=== PATIENT | male | born 1950 | race Caucasian/White ===

== ENCOUNTER 2024-03-11 14:23 | Emergency (ER) | payer MEDICARE ==
[~2024-03-11] VITALS: Ht 177.8 cm; Wt 120.0 kg
[2024-03-11 14:30] VITALS: BP 183/90
[2024-03-11] MEDS ORDERED: ONDANSETRON 4 MG/TAB ODT SL ONE (14:35)
[2024-03-11] MEDS ORDERED: ORPHENADRINE CITRATE 30 MG/ML AMP IM ONE (14:35)
[2024-03-11] MEDS ORDERED: KETOROLAC TROMETHAMINE 30 MG/ML SDV IM ONE (14:35)
[2024-03-11] MEDS ORDERED: oxyCODONE 5MG/ ACETAMINOPHEN 325MG TAB PO ONE (14:35)
[2024-03-11 14:38] VITALS: BP 165/90
[2024-03-11 15:54] VITALS: BP 137/82
[2024-03-11 16:01] VITALS: BP 133/79
[2024-03-11] MEDS ORDERED: NAPROXEN500 MG PO ×2 (16:15→16:20)
[2024-03-11] MEDS ORDERED: METHOCARBAMOL500 MG PO ×2 (16:15→16:20)
[2024-03-11] MEDS ORDERED: PREDNISONE20 MG PO ×2 (16:15→16:20)
[2024-03-11] MEDS ORDERED: LORTAB 5/3255 MG PO ×2 (16:15→16:20)
[2024-03-11 16:16] VITALS: BP 148/75
[2024-03-11 16:31] VITALS: BP 151/70
== END 2024-03-11 16:46 | disposition home or self-care (01) ==
LOC: ED 14:23
DX: S39.012A Strain of muscle, fascia and tendon of lower back, initial encounter (principal); W54.1XXA Struck by dog, initial encounter; Y92.007 Garden or yard of unspecified non-institutional (private) residence as the place of occurrence of the external cause

== ENCOUNTER 2024-03-25 10:13 | Inpatient (IN) | payer MEDICARE ==
[~2024-03-25] VITALS: Ht 182.9 cm; Wt 120.0 kg
[2024-03-25] VITALS (31 sets, daily range): BP systolic 128–173; BP diastolic 74–106
[~2024-03-25 10:13] MED LIST: LORTAB 5/3255 MG PO; METHOCARBAMOL500 MG PO; NAPROXEN500 MG PO; PREDNISONE20 MG PO
[2024-03-25] MEDS ORDERED: diazePAM 10 MG/2 ML VIAL IM ONE (10:50)
[2024-03-25] MEDS ORDERED: KETOROLAC TROMETHAMINE 30 MG/ML SDV IM ONE (10:50)
[2024-03-25] MEDS ORDERED: DEXAMETHASONE SOD. PHOSPHATE 10 MG/ML VIAL IM ONE (10:55)
[2024-03-25] MEDS ORDERED: diazePAM 10 MG/2 ML VIAL IV ONE (12:15)
[2024-03-25] MEDS ORDERED: HYDROmorphone HCL 2 MG/AMP IV ONE (12:15)
[2024-03-25] MEDS ORDERED: METHOTREXATE S2.5 MG PO (12:33)
[2024-03-25] MEDS ORDERED: FOLIC ACID1 MG PO (12:33)
[2024-03-25] MEDS ORDERED: AVONEX30 MCG/0.5 SC (12:34)
[2024-03-25] MEDS ORDERED: VITAMIN D-32000 UNI1 PO (12:48)
[2024-03-25] MEDS ORDERED: TRAZODONE100 MG PO (12:48)
[2024-03-25] MEDS ORDERED: OS-CAL 500500 M1 PO (12:49)
[2024-03-25 13:07] LABS: BASO% 0.3 % (0-3); EOS% 0.4 % (0-8); HEMATOCRIT 47.1 % (39.0-50.0); IMMATURE GRANULOCYTES 0.3 % (0.0-5.0); LYMPH% 5.6 % (15-41); MEAN CELL VOLUME 102.2 fL CALC (80.0-100.0); MEAN CORPUSCULAR HGB 34.7 pG CALC (26.0-32.0); MONO% 5.9 % (2-13); NEUT# 12.54 thou/uL (1.82-7.42); NEUT% 87.5 % (42-76); RED BLOOD COUNT 4.61 mill/uL (4.70-6.10); RED CELL DISTRI WIDTH 14.3 % (11.5-15.5)
[2024-03-25 13:17] LABS: ALBUMIN 4.1 g/dL (3.2-5.0); BILIRUBIN, TOTAL 1.1 mg/dL (0.2-1.3); CREATININE 0.8 mg/dL (0.7-1.3); POTASSIUM 4.3 mmol/l (3.5-5.1); TOTAL PROTEIN 7.2 g/dL (6.3-8.2)
[2024-03-25 13:37] LABS: URINE BLOOD DIPSTICK Negative (NEGATIVE); URINE GLUCOSE - DIPSTICK Negative (NEGATIVE); URINE KETONE 40 mg/dL (NEGATIVE); URINE LEUK ESTERASE Negative (NEGATIVE); URINE NITRITE - DIPSTICK Negative (Negative); URINE PROTEIN - DIPSTICK 100 mg/dL (NEG-TRACE); URINE SPECIFIC GRAVITY 1.025; URINE UROBILINOGEN - DIPSTICK 0.2 E.U./dL (0.2)
[2024-03-25 13:38] LABS: URINE COLOR Yellow
[2024-03-25 13:51] LABS: URINE WBC 0-2 WBC/hpf (0-5)
[2024-03-25 13:52] LABS: URINE COARSE GRANULAR CAST FEW lpf
[2024-03-25] MEDS ORDERED: SODIUM CHLORIDE 0.9% 1,000 ML IV PRN (16:10)
[2024-03-25] MEDS ORDERED: MAGNESIUM HYDROXIDE 30 ML UDC PO PRN (16:10)
[2024-03-25] MEDS ORDERED: ACETAMINOPHEN 325 MG/TAB PO PRN (16:10)
[2024-03-25] MEDS ORDERED: HYDROcodone 7.5 MG/Acetaminophen 325 MG/COMBO PO PRN (16:35)
[2024-03-25] MEDS ORDERED: BACLOFEN 10 MG/TAB PO PRN (16:40)
[2024-03-25] MEDS ORDERED: methylPREDNISolone Sod Succ 40 MG/ML SDV IV SCH (17:00)
[2024-03-25] MEDS ORDERED: ENOXAPARIN SODIUM 40 MG/0.4 ML SYR SC SCH (21:00)
[2024-03-26 04:46] VITALS: BP 157/89
[2024-03-26 05:27] VITALS: BP 157/89
[2024-03-26 07:00] VITALS: BP 155/85
[2024-03-26] MEDS ORDERED: hydrALAZINE HCL 20 MG/ML VIAL(1 ML) IV PRN (09:30)
[2024-03-26] MEDS ORDERED: amLODIPine BESYLATE 5 MG/TAB PO SCH (10:00)
[2024-03-26] MEDS ORDERED: MORPHINE SULFATE 4 MG/ML VIAL IV PRN (10:10)
[2024-03-26] MEDS ORDERED: AZITHROMYCIN 500 MG in SODIUM CHLORIDE 0.9% 250 ML IV SCH (10:30)
[2024-03-26 15:32] VITALS: BP 161/93
[2024-03-26 18:29] VITALS: BP 155/84
[2024-03-26 19:10] VITALS: BP 155/84
[2024-03-26] MEDS ORDERED: traZODone HCL 50 MG/TAB PO SCH ×2 (21:00)
[2024-03-27 04:15] VITALS: BP 107/63
[2024-03-27 04:44] VITALS: BP 107/63
[2024-03-27 05:37] LABS: HEMATOCRIT 42.8 % (39.0-50.0); HEMOGLOBIN 14.9 g/dl (14.0-18.0); MEAN CELL VOLUME 101.9 fL CALC (80.0-100.0); MEAN CORPUSCULAR HGB 35.5 pG CALC (26.0-32.0); MEAN CORPUSCULAR HGB CONC 34.8 g/dL CAL (32.0-36.0); RED BLOOD COUNT 4.2 mill/uL (4.70-6.10); RED CELL DISTRI WIDTH 14.1 % (11.5-15.5)
[2024-03-27 05:53] LABS: ALBUMIN 3.4 g/dL (3.2-5.0); BILIRUBIN, TOTAL 0.7 mg/dL (0.2-1.3); CREATININE 0.7 mg/dL (0.7-1.3)
[2024-03-27 07:00] VITALS: BP 110/50
[2024-03-27] MEDS ORDERED: INFLUENZA VIRUS VACCINE FLUZONE HD 2024/25 0.5 ML INJ IM SCH (09:00)
[2024-03-27] MEDS ORDERED: PNEUMOCOCCAL 20-VALENT CONJUGA 0.5 ML/DOSE INJ IM SCH (09:00)
[2024-03-27 14:56] VITALS: BP 134/83
[2024-03-27 19:02] VITALS: BP 156/85
[2024-03-28 04:44] VITALS: BP 125/53
[2024-03-28 05:16] LABS: HEMATOCRIT 39.3 % (39.0-50.0); HEMOGLOBIN 13.7 g/dl (14.0-18.0); MEAN CORPUSCULAR HGB 35.2 pG CALC (26.0-32.0); MEAN CORPUSCULAR HGB CONC 34.9 g/dL CAL (32.0-36.0); RED BLOOD COUNT 3.89 mill/uL (4.70-6.10); RED CELL DISTRI WIDTH 14.2 % (11.5-15.5)
[2024-03-28 05:36] LABS: ALBUMIN 3.3 g/dL (3.2-5.0); BILIRUBIN, TOTAL 0.8 mg/dL (0.2-1.3); CREATININE 0.7 mg/dL (0.7-1.3); POTASSIUM 3.9 mmol/l (3.5-5.1); TOTAL PROTEIN 5.7 g/dL (6.3-8.2)
[2024-03-28 07:07] VITALS: BP 147/81
[2024-03-28] MEDS ORDERED: LIDOCAINE 4 % PATCH TD SCH (09:00)
[2024-03-28] MEDS ORDERED: KETOROLAC TROMETHAMINE 30 MG/ML SDV IV PRN (11:15)
[2024-03-28] MEDS ORDERED: METHOCARBAMOL 500 MG/TAB PO SCH (13:00)
[2024-03-28 16:01] VITALS: BP 143/73
[2024-03-28 18:30] VITALS: BP 135/69
[2024-03-28 18:40] VITALS: BP 135/69
[2024-03-29 04:00] VITALS: BP 145/78
[2024-03-29 05:26] LABS: HEMATOCRIT 40.9 % (39.0-50.0); MEAN CELL VOLUME 102.8 fL CALC (80.0-100.0); MEAN CORPUSCULAR HGB 35.2 pG CALC (26.0-32.0); MEAN CORPUSCULAR HGB CONC 34.2 g/dL CAL (32.0-36.0); MONO% 7.9 % (2-13); NEUT# 13.15 thou/uL (1.82-7.42); NEUT% 84.1 % (42-76); RED BLOOD COUNT 3.98 mill/uL (4.70-6.10)
[2024-03-29 05:38] LABS: ALBUMIN 3.4 g/dL (3.2-5.0); BILIRUBIN, TOTAL 0.8 mg/dL (0.2-1.3); CREATININE 0.7 mg/dL (0.7-1.3); MAGNESIUM 2.4 mg/dL (1.6-2.3); POTASSIUM 4.2 mmol/l (3.5-5.1); TOTAL PROTEIN 5.9 g/dL (6.3-8.2)
[2024-03-29 06:32] VITALS: BP 149/75
[2024-03-29 06:56] VITALS: BP 149/75
[2024-03-29] MEDS ORDERED: LIDOCAINE 4 % PATCH TD SCH (11:00)
[2024-03-29 16:06] VITALS: BP 130/69
[2024-03-29 17:24] VITALS: BP 130/69
[2024-03-29 19:28] VITALS: BP 135/61
[2024-03-30] VITALS (7 sets, daily range): BP systolic 124–158; BP diastolic 67–72
[2024-03-30 05:46] LABS: ALBUMIN 3.6 g/dL (3.2-5.0); BILIRUBIN, TOTAL 0.7 mg/dL (0.2-1.3); CREATININE 0.7 mg/dL (0.7-1.3); MAGNESIUM 2.6 mg/dL (1.6-2.3); POTASSIUM 4.4 mmol/l (3.5-5.1); TOTAL PROTEIN 6.1 g/dL (6.3-8.2)
[2024-03-30 05:53] LABS: HEMATOCRIT 41.1 % (39.0-50.0); HEMOGLOBIN 14.1 g/dl (14.0-18.0); IMMATURE GRANULOCYTES 1.3 % (0.0-5.0); MEAN CORPUSCULAR HGB 35.3 pG CALC (26.0-32.0); MEAN CORPUSCULAR HGB CONC 34.3 g/dL CAL (32.0-36.0); MONO% 8.8 % (2-13); NEUT# 13.27 thou/uL (1.82-7.42); NEUT% 81.9 % (42-76); RED BLOOD COUNT 3.99 mill/uL (4.70-6.10); RED CELL DISTRI WIDTH 14.4 % (11.5-15.5)
[2024-03-30] MEDS ORDERED: Cefdinir 300 MG/CAP PO SCH (09:00)
[2024-03-31 03:48] VITALS: BP 143/74
[2024-03-31 05:02] VITALS: BP 143/74
[2024-03-31 05:43] LABS: EOS% 0.5 % (0-8); HEMATOCRIT 37.2 % (39.0-50.0); HEMOGLOBIN 12.9 g/dl (14.0-18.0); IMMATURE GRANULOCYTES 2.9 % (0.0-5.0); LYMPH% 16.2 % (15-41); MEAN CELL VOLUME 101.4 fL CALC (80.0-100.0); MEAN CORPUSCULAR HGB 35.1 pG CALC (26.0-32.0); MEAN CORPUSCULAR HGB CONC 34.7 g/dL CAL (32.0-36.0); MONO% 10.7 % (2-13); NEUT# 9.61 thou/uL (1.82-7.42); NEUT% 69.7 % (42-76); RED BLOOD COUNT 3.67 mill/uL (4.70-6.10)
[2024-03-31 06:05] LABS: ALBUMIN 3.1 g/dL (3.2-5.0); BILIRUBIN, TOTAL 0.6 mg/dL (0.2-1.3); CREATININE 0.8 mg/dL (0.7-1.3); MAGNESIUM 2.3 mg/dL (1.6-2.3); TOTAL PROTEIN 5.4 g/dL (6.3-8.2)
[2024-03-31 07:00] VITALS: BP 133/68
[2024-03-31] MEDS ORDERED: METHOCARBAMOL 500 MG/TAB PO SCH (08:00)
[2024-03-31 08:52] VITALS: BP 123/69
[2024-03-31] MEDS ORDERED: predniSONE 20 MG/TAB PO SCH (09:00)
[2024-03-31 15:15] VITALS: BP 122/50
[2024-03-31 18:24] VITALS: BP 105/59
[2024-04-01 03:19] VITALS: BP 133/61
[2024-04-01 05:50] LABS: EOS% 1.2 % (0-8); HEMATOCRIT 37.1 % (39.0-50.0); HEMOGLOBIN 12.9 g/dl (14.0-18.0); IMMATURE GRANULOCYTES 4.3 % (0.0-5.0); LYMPH% 15.6 % (15-41); MEAN CELL VOLUME 101.6 fL CALC (80.0-100.0); MEAN CORPUSCULAR HGB 35.3 pG CALC (26.0-32.0); MEAN CORPUSCULAR HGB CONC 34.8 g/dL CAL (32.0-36.0); MONO% 10.3 % (2-13); NEUT# 9.17 thou/uL (1.82-7.42); NEUT% 68.6 % (42-76); RED BLOOD COUNT 3.65 mill/uL (4.70-6.10); RED CELL DISTRI WIDTH 14.2 % (11.5-15.5)
[2024-04-01 05:59] LABS: BILIRUBIN, TOTAL 0.6 mg/dL (0.2-1.3); CREATININE 0.7 mg/dL (0.7-1.3); MAGNESIUM 2.3 mg/dL (1.6-2.3); POTASSIUM 4.1 mmol/l (3.5-5.1); TOTAL PROTEIN 5.4 g/dL (6.3-8.2)
[2024-04-01 07:23] VITALS: BP 135/66
[2024-04-01 15:07] VITALS: BP 125/68
[2024-04-01 18:25] VITALS: BP 117/65
[2024-04-02 04:49] VITALS: BP 115/40
[2024-04-02 05:27] LABS: EOS% 0.9 % (0-8); HEMATOCRIT 36.8 % (39.0-50.0); HEMOGLOBIN 12.6 g/dl (14.0-18.0); IMMATURE GRANULOCYTES 4.7 % (0.0-5.0); LYMPH% 14.5 % (15-41); MEAN CELL VOLUME 101.4 fL CALC (80.0-100.0); MEAN CORPUSCULAR HGB 34.7 pG CALC (26.0-32.0); MEAN CORPUSCULAR HGB CONC 34.2 g/dL CAL (32.0-36.0); NEUT# 8.26 thou/uL (1.82-7.42); NEUT% 69.9 % (42-76); RED BLOOD COUNT 3.63 mill/uL (4.70-6.10); RED CELL DISTRI WIDTH 14.3 % (11.5-15.5)
[2024-04-02 05:46] LABS: BILIRUBIN, TOTAL 0.7 mg/dL (0.2-1.3); CREATININE 0.7 mg/dL (0.7-1.3); TOTAL PROTEIN 5.4 g/dL (6.3-8.2)
[2024-04-02 07:30] VITALS: BP 136/54
[2024-04-02 15:49] VITALS: BP 122/63
[2024-04-02 18:56] VITALS: BP 126/68
[2024-04-02] MEDS ORDERED: SENNOSIDES-Docusate Sodium 1 COMBO TAB PO SCH (21:00)
[2024-04-03 04:37] VITALS: BP 128/67
[2024-04-03 05:00] LABS: BASO% 0.1 % (0-3); HEMATOCRIT 38.2 % (39.0-50.0); HEMOGLOBIN 12.9 g/dl (14.0-18.0); IMMATURE GRANULOCYTES 4.2 % (0.0-5.0); LYMPH% 16.3 % (15-41); MEAN CELL VOLUME 103.8 fL CALC (80.0-100.0); MEAN CORPUSCULAR HGB 35.1 pG CALC (26.0-32.0); MEAN CORPUSCULAR HGB CONC 33.8 g/dL CAL (32.0-36.0); MONO% 9.2 % (2-13); NEUT# 7.66 thou/uL (1.82-7.42); NEUT% 69.2 % (42-76); RED BLOOD COUNT 3.68 mill/uL (4.70-6.10); RED CELL DISTRI WIDTH 14.3 % (11.5-15.5)
[2024-04-03 05:13] LABS: ALBUMIN 3.1 g/dL (3.2-5.0); BILIRUBIN, TOTAL 0.8 mg/dL (0.2-1.3); CREATININE 0.7 mg/dL (0.7-1.3); MAGNESIUM 2.2 mg/dL (1.6-2.3); POTASSIUM 4.5 mmol/l (3.5-5.1); TOTAL PROTEIN 5.5 g/dL (6.3-8.2)
[2024-04-03 07:21] VITALS: BP 124/69
[2024-04-03 16:26] VITALS: BP 130/69
[2024-04-03 18:41] VITALS: BP 117/69
[2024-04-04 05:03] LABS: BASO% 0.1 % (0-3); EOS% 0.9 % (0-8); HEMATOCRIT 39.1 % (39.0-50.0); HEMOGLOBIN 13.1 g/dl (14.0-18.0); IMMATURE GRANULOCYTES 5.1 % (0.0-5.0); LYMPH% 11.1 % (15-41); MEAN CELL VOLUME 102.4 fL CALC (80.0-100.0); MEAN CORPUSCULAR HGB 34.3 pG CALC (26.0-32.0); MEAN CORPUSCULAR HGB CONC 33.5 g/dL CAL (32.0-36.0); MONO% 8.9 % (2-13); NEUT# 8.35 thou/uL (1.82-7.42); NEUT% 73.9 % (42-76); RED BLOOD COUNT 3.82 mill/uL (4.70-6.10); RED CELL DISTRI WIDTH 14.2 % (11.5-15.5)
[2024-04-04 05:15] LABS: ALBUMIN 3.1 g/dL (3.2-5.0); BILIRUBIN, TOTAL 0.7 mg/dL (0.2-1.3); CREATININE 0.9 mg/dL (0.7-1.3); MAGNESIUM 2.2 mg/dL (1.6-2.3); TOTAL PROTEIN 5.6 g/dL (6.3-8.2)
[2024-04-04 07:00] VITALS: BP 115/68
[2024-04-04 15:06] VITALS: BP 111/69
[2024-04-04] MEDS ORDERED: BISACODYL 10 MG SUPP RE PRN (16:10)
[2024-04-04 19:21] VITALS: BP 112/75
[2024-04-04] MEDS ORDERED: MAGNESIUM HYDROXIDE 30 ML UDC PO PRN (20:45)
[2024-04-04] MEDS ORDERED: LACTULOSE 20 GM/30 ML UDC PO PRN (20:50)
[2024-04-05 04:19] VITALS: BP 144/85
[2024-04-05 04:19] LABS: ALBUMIN 3.1 g/dL (3.2-5.0); BILIRUBIN, TOTAL 0.6 mg/dL (0.2-1.3); CREATININE 0.7 mg/dL (0.7-1.3); MAGNESIUM 2.4 mg/dL (1.6-2.3); TOTAL PROTEIN 5.7 g/dL (6.3-8.2)
[2024-04-05 04:38] LABS: BASO% 0.2 % (0-3); EOS% 0.5 % (0-8); HEMATOCRIT 37.7 % (39.0-50.0); IMMATURE GRANULOCYTES 3.6 % (0.0-5.0); MEAN CELL VOLUME 101.1 fL CALC (80.0-100.0); MEAN CORPUSCULAR HGB 34.9 pG CALC (26.0-32.0); MEAN CORPUSCULAR HGB CONC 34.5 g/dL CAL (32.0-36.0); NEUT# 7.2 thou/uL (1.82-7.42); NEUT% 65.7 % (42-76); RED BLOOD COUNT 3.73 mill/uL (4.70-6.10); RED CELL DISTRI WIDTH 14.2 % (11.5-15.5)
[2024-04-05 07:09] VITALS: BP 141/82
[2024-04-05 15:36] VITALS: BP 124/77
[2024-04-05 19:18] VITALS: BP 138/75
[2024-04-06 03:52] VITALS: BP 125/64
[2024-04-06 05:22] LABS: ALBUMIN 3.2 g/dL (3.2-5.0); BILIRUBIN, TOTAL 0.6 mg/dL (0.2-1.3); CREATININE 0.7 mg/dL (0.7-1.3); POTASSIUM 4.1 mmol/l (3.5-5.1); TOTAL PROTEIN 5.8 g/dL (6.3-8.2)
[2024-04-06 07:16] VITALS: BP 132/67
[2024-04-06 15:21] VITALS: BP 117/71
[2024-04-06 18:22] VITALS: BP 126/80
[2024-04-06 18:27] VITALS: BP 139/64
[2024-04-06 18:32] VITALS: BP 120/80
[2024-04-07 03:27] VITALS: BP 140/81
[2024-04-07 04:52] VITALS: BP 140/81
[2024-04-07 07:42] VITALS: BP 118/75
[2024-04-07 08:50] VITALS: BP 118/75
[2024-04-07 15:51] VITALS: BP 131/77
[2024-04-07 19:30] VITALS: BP 131/77
[2024-04-08 05:35] LABS: BASO% 0.4 % (0-3); EOS% 0.6 % (0-8); HEMATOCRIT 37.4 % (39.0-50.0); HEMOGLOBIN 12.8 g/dl (14.0-18.0); IMMATURE GRANULOCYTES 1.6 % (0.0-5.0); LYMPH% 16.6 % (15-41); MEAN CELL VOLUME 101.6 fL CALC (80.0-100.0); MEAN CORPUSCULAR HGB 34.8 pG CALC (26.0-32.0); MEAN CORPUSCULAR HGB CONC 34.2 g/dL CAL (32.0-36.0); MONO% 7.1 % (2-13); NEUT# 9.1 thou/uL (1.82-7.42); NEUT% 73.7 % (42-76); RED BLOOD COUNT 3.68 mill/uL (4.70-6.10)
[2024-04-08 05:57] LABS: ALBUMIN 3.2 g/dL (3.2-5.0); BILIRUBIN, TOTAL 0.7 mg/dL (0.2-1.3); CREATININE 0.6 mg/dL (0.7-1.3); MAGNESIUM 2.5 mg/dL (1.6-2.3); POTASSIUM 3.9 mmol/l (3.5-5.1); TOTAL PROTEIN 5.7 g/dL (6.3-8.2)
[2024-04-08 07:11] VITALS: BP 130/74
[2024-04-08 09:44] VITALS: BP 130/74
[2024-04-08] MEDS ORDERED: MEDDOSEPAK PO (11:14)
[2024-04-08] MEDS ORDERED: AMLODIPINE BESYL5 MG PO (11:15)
[2024-04-08] MEDS ORDERED: LORTAB 1010 MG PO (11:15)
== END 2024-04-08 15:50 | DRG 562 ==
LOC: ED 10:13 → ED-I 11:17 → ED 15:21 → MS2 15:22
PROVIDERS: Emergency Medicine; Nurse Practitioner Family; Student in an Organized Health Care Education/Training Program; ADMIT Internal Medicine; ATTEND Internal Medicine
PROC: 3E02340 Introduction of Influenza Vaccine into Muscle, Percutaneous Approach (ICD-10-PCS; principal; 2024-03-27)
PROC: 3E0234Z Introduction of Serum, Toxoid and Vaccine into Muscle, Percutaneous Approach (ICD-10-PCS; 2024-03-27)
DX: S39.012A Strain of muscle, fascia and tendon of lower back, initial encounter (principal); J18.9 Pneumonia, unspecified organism; I10 Essential (primary) hypertension; G35 Multiple sclerosis; M47.814 Spondylosis without myelopathy or radiculopathy, thoracic region; M47.816 Spondylosis without myelopathy or radiculopathy, lumbar region; F51.04 Psychophysiologic insomnia; W54.1XXA Struck by dog, initial encounter; Z95.0 Presence of cardiac pacemaker; Z23 Encounter for immunization
CPT/HCPCS: 90662; J0456; J1650; Q9967